=== PATIENT | female | born 1995 | race American Indian/Alaskan Native ===

== ENCOUNTER 2019-10-04 16:50 | Emergency (ER) | payer MEDICAID ==
[2019-10-04 17:00] VITALS: BP 125/74
--- NOTE | 2019-10-04 17:45 | XRay Report ---
CHEST 2 VIEWS INDICATION / CLINICAL INFORMATION: chest pain. COMPARISON: None available. FINDINGS: SUPPORT DEVICES: None. HEART / MEDIASTINUM: No significant abnormality. LUNGS / PLEURA: No significant pulmonary or pleural abnormality. No pneumothorax. ADDITIONAL FINDINGS: No significant additional findings. IMPRESSION: 1. No acute findings. Signer Name: Arturo Rodgers MD Signed: 10/04/2019 5:41 PM Workstation Name: [id number]
--- NOTE | 2019-10-04 19:11 | Emergency Department Report ---
ED General Adult HPI - General Chief complaint: Chest Pain Stated complaint: CHEST PAIN PUI?: No Time Seen by Provider: 10/04/19 18:40 Source: patient Mode of arrival: Ambulatory Limitations: No Limitations - History of Present Illness Initial comments: This is a 24-year-old healthy looking female who presents the ED complaining of midsternal chest pain x2 months. Patient states pain is throbbing in nature and worsening with certain movements and bending. Patient denies coughing, fever, shortness of breath, history of asthma, injury to the chest. Patient stated she has not taken any medication. She states that pain is localized to the midsternal region with no radiation elsewhere. Chest x-ray was normal. EKG was normal - Related Data Previous Rx's Medication Instructions Recorded Last Taken Type Hyoscyamine Subl [Levsin Sl 0.125 0.125 mg SL Q4HR PRN #20 tablet 04/21/18 Unknown Rx TAB] Ondansetron [Zofran Odt] 4 mg PO Q8HR #14 tab.rapdis 04/21/18 Unknown Rx Naproxen [Naprosyn] 500 mg PO BID #20 tablet 10/04/19 Unknown Rx Allergies Allergy/AdvReac Type Severity Reaction Status Date / Time chlorpheniramine Allergy Unknown Verified 10/04/19 16:56 [From [facility]] dexbrompheniramine Allergy Unknown Verified 10/04/19 16:56 [From [facility]] hydrocodone Allergy Unknown Verified 10/04/19 16:56 [From [facility]] phenylephrine Allergy Unknown Verified 10/04/19 16:56 [From [facility]] ED Review of Systems ROS: Stated complaint: CHEST PAIN Other details as noted in HPI ED Past Medical Hx - Past Medical History Previous Medical History?: Yes Additional medical history: IRREGULAR PERIODS - Surgical History Past Surgical History?: Yes Additional Surgical History: cervical curettage - Social History Smoking Status: Never Smoker Substance Use Type: Alcohol - Medications Home Medications: Home Medications Medication Instructions Recorded Confirmed Last Taken Type Hyoscyamine Subl [Levsin Sl 0.125 0.125 mg SL Q4HR PRN #20 tablet 04/21/18 Unknown Rx TAB] Ondansetron [Zofran Odt] 4 mg PO Q8HR #14 tab.rapdis 04/21/18 Unknown Rx Naproxen [Naprosyn] 500 mg PO BID #20 tablet 10/04/19 Unknown Rx ED Physical Exam - General Limitations: No Limitations ED Course Vital Signs 10/04/19 17:00 Temperature 98.3 F Pulse Rate 85 Respiratory 16 Rate Blood Pressure 125/74 O2 Sat by Pulse 98 Oximetry ED Medical Decision Making - EKG Data EKG shows normal: sinus rhythm Rate: normal - EKG Data Interpretation: normal EKG - Radiology Data Radiology results: report reviewed, image reviewed CHEST 2 VIEWS INDICATION / CLINICAL INFORMATION: chest pain. COMPARISON: None available. FINDINGS: SUPPORT DEVICES: None. HEART / MEDIASTINUM: No significant abnormality. LUNGS / PLEURA: No significant pulmonary or pleural abnormality. No pneumothorax. ADDITIONAL FINDINGS: No significant additional findings. IMPRESSION: 1. No acute findings. Signer Name: Arturo Rodgers MD Signed: 10/04/2019 5:41 PM Workstation Name: [id number] Transcribed By: ILEANA Dictated By: Arturo Rodgers MD Electronically Authenticated By: Arturo Rodgers MD Signed Date/Time: 10/04/19 174 - Medical Decision Making This 24-year-old female presents with costochondritis chest pain. Cxr, ekg was performed and wnl. Discussed with patient findings. Discussed to follow-up with primary care physician. Discussed naproxen for pain. Vital signs are normal patient is in no acute or respiratory distress. Critical care attestation.: If time is entered above; I have spent that time in minutes in the direct care of this critically ill patient, excluding procedure time. ED Disposition Clinical Impression: Costochondral chest pain Disposition: [id number] TO HOME OR SELFCARE Is pt being admited?: No Does the pt Need Aspirin: No Condition: Stable Instructions: Chest Pain (ED), Costochondritis (ED) Additional Instructions: Make sure to follow up with the primary care physician as discussed. Take all your medications as you've been prescribed. If you have any worsening symptoms or develop new symptoms please return to ED immediately. Prescriptions: Naproxen [Naprosyn] 500 mg PO BID #20 tablet Referrals: [facility] [Outside] - 3-5 Days [facility] [Outside] - 3-5 Days [facility] [Outside] - 3-5 Days Forms: Work/School Release Form(ED) Time of Disposition: 19:17
== END 2019-10-04 19:48 | disposition home or self-care (01) ==
LOC: ED 16:50
DX: R07.1 Chest pain on breathing (principal); Z79.899 Other long term (current) drug therapy; Z88.8 Allergy status to other drugs, medicaments and biological substances; Z98.890 Other specified postprocedural states
CPT/HCPCS: 71046; 93005